=== PATIENT | male | born 1995 | race Caucasian/White ===

== ENCOUNTER 2017-09-16 10:47 | Emergency (ER) | payer MEDICAID ==
[2017-09-16 10:59] VITALS: BP 130/81
--- NOTE | 2017-09-16 12:11 | ED Physician Documentation ---
PD HPI SKIN - Stated complaint Stated Complaint: R ARMPIT PX - Chief complaint Chief Complaint: Wound - History obtained from History obtained from: Patient - History of Present Illness Timing - onset: Other (He has had a boil in the right armpit for 1-2 weeks that is increasingly swollen and painful. No fevers or chills. He is never had MRSA. He has had some boils in the past but never this big.) Review of Systems Constitutional: reports: Reviewed and negative Cardiac: reports: Reviewed and negative Respiratory: reports: Reviewed and negative PD PAST MEDICAL HISTORY - Past Medical History Past Medical History: Yes Respiratory: Asthma - Present Medications Home Medications: Ambulatory Orders Medication Instructions Recorded Confirmed Albuterol Sulfate [Proair Hfa 09/16/17 Inhaler] Fluticasone/Salmeterol [Advair 09/16/17 250-50 Diskus] Sulfamethoxazole/Trimethoprim 1 each PO BID 7 Days tablet 09/16/17 [Sulfamethoxazole-Tmp Ds Tablet] - Allergies Allergies/Adverse Reactions: Allergies Allergy/AdvReac Type Severity Reaction Status Date / Time No Known Drug Allergies Allergy Verified 09/16/17 10:59 - Social History Does the pt smoke?: No Smoking Status: Never smoker PD ED PE NORMAL - Vitals Vital signs reviewed: Yes - General General: Alert and oriented X 3, No acute distress - Extremities Extremities: Other (There is a 2 cm abscess with overlying cellulitis in the right axilla) - Neuro Neuro: Alert and oriented X 3, Normal speech Results - Vitals Vitals: Vital Signs - 24 hr 09/16/17 10:54 Temperature 36.3 C L Heart Rate 76 Respiratory 16 Rate Blood Pressure 130/81 H O2 Saturation 98 Oxygen O2 Source Room air Procedures - Abscess I&D (location) R axilla Preparation: Chlorhexadine, Lidocaine 1% Incision: Incised with scalpel, Purulent drainage, Loculations broken, Culture obtained. No: Packed Other: Pt tolerated well, Dressing applied, Antibiotic prescribed PD MEDICAL DECISION MAKING - Sepsis Event Vital Signs: Vital Signs - 24 hr 09/16/17 10:54 Temperature 36.3 C L Heart Rate 76 Respiratory 16 Rate Blood Pressure 130/81 H O2 Saturation 98 Oxygen O2 Source Room air Departure - Departure Disposition: 01 Home, Self Care Clinical Impression: Abscess Condition: Good Record reviewed to determine appropriate education?: Yes Instructions: ED Abscess IandD Prescriptions: Sulfamethoxazole/Trimethoprim [Sulfamethoxazole-Tmp Ds Tablet] 1 each PO BID 7 Days tablet Comments: We are performing a wound culture, the results should be done in 48-72 hours. If antibiotic change is necessary we will call you. Return if worse in the meantime, especially if you develop increased pain, fevers, cannot keep down the medication. Otherwise follow-up with your physician in approximately 2-3 days. Your blood pressure was elevated today on check into the emergency department. This does not mean that you have hypertension, it is a common phenomenon to come to the emergency department and have elevated blood pressure. I recommend that you see your primary care physician within the week to have it rechecked when you are feeling better.
[2017-09-16] MEDS ORDERED: BUFFERED LIDOCAINE 10 ML SYRINGE ONE (12:19)
[2017-09-16] MEDS ORDERED: BACITRACIN OINT TOP ONE (12:59)
== END 2017-09-16 12:57 | disposition home or self-care (01) ==
LOC: ED 10:47
DX: L02.411 Cutaneous abscess of right axilla (principal); L03.111 Cellulitis of right axilla; R03.0 Elevated blood-pressure reading, without diagnosis of hypertension
CPT/HCPCS: 10060; 87070; 87077; 87181; 87205; 99283; A9270

== ENCOUNTER 2017-10-29 10:12 | Emergency (ER) | payer MEDICAID ==
[2017-10-29 10:22] VITALS: BP 124/74
[2017-10-29] MEDS ORDERED: ALBUTEROL NEB 2.5 MG/3 ML INH STA (10:40)
[2017-10-29] MEDS ORDERED: DEXAMETHASONE 10 MG/ML VIAL PO STA (10:40)
[2017-10-29] MEDS ORDERED: CHERRY SYRUP 10 ML UDC PO ONE (10:50)
--- NOTE | 2017-10-29 11:14 | ED Physician Documentation ---
PD HPI DYSPNEA - Stated complaint Stated Complaint: SOA - Chief complaint Chief Complaint: Resp - History obtained from History obtained from: Patient - History of Present Illness Timing - onset: How many days ago (several) Timing - onset during: Light activity Timing - details: Gradual onset, Still present, Waxing and waning Inciting event(s): Out of meds. No: URI, Allergic rxn/anaphylaxis, Exercise Improved by: Inhaler/neb Worsened by: Exertion. No: Coughing Associated symptoms: Wheezing, Chest pain / discomfort. No: Fever, Cough, Hemoptysis Similar symptoms before: Diagnosis (asthma) Recently seen: Not recently seen Review of Systems Constitutional: denies: Fever, Chills, Myalgias Nose: denies: Rhinorrhea / runny nose, Congestion Throat: denies: Sore throat Cardiac: denies: Chest pain / pressure Respiratory: reports: Dyspnea, Cough, Wheezing GI: denies: Nausea, Vomiting, Diarrhea Skin: denies: Rash PD PAST MEDICAL HISTORY - Past Medical History Past Medical History: Yes Respiratory: Asthma - Present Medications Home Medications: Ambulatory Orders Medication Instructions Recorded Confirmed Albuterol Sulfate [Proair Hfa 09/16/17 Inhaler] Albuterol Sulf [Ventolin Hfa 2 - 3 puffs INH Q4HR PRN #1 inhaler 10/29/17 Inhaler] Dexamethasone [Decadron] 4 mg PO DAILY #20 tablet 10/29/17 - Allergies Allergies/Adverse Reactions: Allergies Allergy/AdvReac Type Severity Reaction Status Date / Time No Known Drug Allergies Allergy Verified 10/29/17 10:22 - Social History Does the pt smoke?: No Smoking Status: Never smoker PD ED PE NORMAL - Vitals Vital signs reviewed: Yes - General General: Alert and oriented X 3, No acute distress, Well developed/nourished - HEENT HEENT: Pharynx benign - Neck Neck: Supple, no meningeal sign, No adenopathy - Cardiac Cardiac: RRR, No murmur - Respiratory Respiratory: No: Clear bilaterally (exp wheezing without coarse sounds. ) - Abdomen Abdomen: Soft, Non tender - Derm Derm: Normal color, Warm and dry - Extremities Extremities: No edema, No calf tenderness / cord Results - Vitals Vitals: Oxygen O2 Source Room air PD MEDICAL DECISION MAKING - ED course Complexity details: re-evaluated patient (improved with neb), considered differential, d/w patient - Sepsis Event Vital Signs: Oxygen O2 Source Room air Departure - Departure Disposition: 01 Home, Self Care Clinical Impression: Acute exacerbation of extrinsic asthma Condition: Stable Record reviewed to determine appropriate education?: Yes Instructions: ED Reactive Airway Disease Prescriptions: Albuterol Sulf [Ventolin Hfa Inhaler] 2 - 3 puffs INH Q4HR PRN #1 inhaler PRN Reason: Shortness Of Air/Wheezing Dexamethasone [Decadron] 4 mg PO DAILY #20 tablet Comments: Use your albuterol inhaler 2-3 puffs 4 times a day for the next several days to week. Use the Decadron steroid for bronchial inflammation daily for the next 5- 7 days. He can then see how you are doing without it or take the Decadron every the second or third day to maintain the asthma better. This until you are able to see your primary care back home for a refill of your inhaled steroid Advair. Discharge Date/Time: 10/29/17 11:20
== END 2017-10-29 11:20 | disposition home or self-care (01) ==
LOC: ED 10:12
DX: J45.901 Unspecified asthma with (acute) exacerbation (principal); Z91.138 Patient's unintentional underdosing of medication regimen for other reason
CPT/HCPCS: 94640; 99283; A9270

== ENCOUNTER 2021-06-08 10:31 | Emergency (ER) | payer MEDICAID ==
[2021-06-08] MEDS ORDERED: predniSONE 20 MG TABLET PO STA (11:15)
[2021-06-08] MEDS ORDERED: IPRATROPIUM/ALBUTEROL 3 ML NEB INH STA (11:15)
[2021-06-08] MEDS ORDERED: ALBUTEROL NEB 2.5 MG/3 ML INH STA (11:15)
--- NOTE | 2021-06-08 12:34 | ED Physician Documentation ---
PD HPI DYSPNEA - Stated complaint Stated Complaint: SOA - Chief complaint Chief Complaint: Resp - Additional information Additional information: Patient is 26-year-old male with past medical significant for asthma presenting to the emergency department chief complaint shortness of breath. Reports recently moved to [facility]. Does not have primary care. Does not have albuterol inhaler. Endorses for 1 day wheeze at home. No known contact with asthma triggers. Denies known sick contacts. Denies fever, chills, chest pain, abdominal pain, nausea, vomiting, diarrhea, constipation. Review of Systems Ten Systems: 10 systems reviewed and negative Constitutional: denies: Fever Eyes: denies: Loss of vision Ears: denies: Loss of hearing Nose: denies: Rhinorrhea / runny nose Throat: denies: Dental pain / toothache Cardiac: denies: Chest pain / pressure Respiratory: reports: Dyspnea, Wheezing. denies: Cough, Hemoptysis GI: denies: Abdominal Pain, Nausea, Vomiting, Constipation, Diarrhea PD PAST MEDICAL HISTORY - Past Medical History Past Medical History: Yes Respiratory: Asthma - Past Surgical History Past Surgical History: No - Present Medications Home Medications: Ambulatory Orders Medication Instructions Recorded Confirmed Albuterol Sulf [Ventolin Hfa 2 - 3 puffs INH Q4HR PRN #1 inhaler 10/29/17 06/08/21 Inhaler] Albuterol Sulf [Ventolin Hfa 1 - 2 puffs INH Q4HR PRN #1 inhaler 06/08/21 Inhaler] predniSONE [Deltasone] 40 mg PO DAILY #10 tablet 06/08/21 - Allergies Allergies/Adverse Reactions: Allergies Allergy/AdvReac Type Severity Reaction Status Date / Time No Known Drug Allergies Allergy Verified 06/08/21 10:34 - Social History Does the pt smoke?: No Smoking Status: Never smoker Does the pt drink ETOH?: No Does the pt have substance abuse?: No PD ED PE NORMAL - Vitals Vital signs reviewed: Yes - General General: Alert and oriented X 3, No acute distress - HEENT HEENT: Atraumatic, PERRL - Neck Neck: Supple, no meningeal sign - Cardiac Cardiac: RRR, No gallop - Respiratory Respiratory: Other (Diffuse wheezing in all dockery) - Abdomen Abdomen: Normal bowel sounds, Soft - Male Male : Deferred - Rectal Rectal: Deferred - Derm Derm: Normal color - Extremities Extremities: No deformity Results - Vitals Vitals: Vital Signs - 24 hr 06/08/21 06/08/21 10:35 11:53 Temperature 36.8 C Heart Rate 100 96 Respiratory 19 18 Rate Blood Pressure 141/100 H O2 Saturation 97 Oxygen O2 Source Room air PD MEDICAL DECISION MAKING - ED course Complexity details: reviewed results, d/w patient ED course: Patient 26-year-old male presenting to the emergency department with shortness of breath x1 day in setting of known history of asthma.Afebrile, hemodynamically stable on arrival to the emergency department. Diffuse wheezing in all air dockery appreciated on exam. DuoNeb and prednisone applied in the emergency department. Patient monitored for several hours. On reevaluation had a dramatic improvement with near completely clear aeration in all lung dockery. Stated he felt significantly better. Will discharge on short course oral pre dnisone with prescription for inhaler and instructions in its use. Encourage patient to continue to work towards establishing himself with a primary care doctor. Otherwise clear return precautions and follow-up instructions given prior to discharge. Departure - Departure Disposition: 01 Home, Self Care Clinical Impression: Asthma Instructions: Asthma Dc Prescriptions: Albuterol Sulf [Ventolin Hfa Inhaler] 1 - 2 puffs INH Q4HR PRN #1 inhaler PRN Reason: Shortness Of Air/Wheezing predniSONE [Deltasone] 40 mg PO DAILY #10 tablet
[2021-06-08 12:42] VITALS: BP 114/70
== END 2021-06-08 14:20 | disposition home or self-care (01) ==
LOC: ED 10:31
DX: J45.909 Unspecified asthma, uncomplicated (principal)
CPT/HCPCS: 94640; 99283; J7512

== ENCOUNTER 2022-11-07 10:17 | Emergency (ER) | payer MEDICAID ==
[2022-11-07 10:31] VITALS: BP 124/87; O2SAT 97
== END 2022-11-07 11:00 | disposition left against medical advice (07) ==
LOC: ED 10:17
DX: Z53.21 Procedure and treatment not carried out due to patient leaving prior to being seen by health care provider (principal)

== ENCOUNTER 2023-07-31 16:17 | Outpatient (CLI) | payer MEDICAID | END 2023-07-31 23:59 | disposition EMS.NT | LOC: EMS 16:17 | DX: R61 Generalized hyperhidrosis (principal); T40.411A Poisoning by fentanyl or fentanyl analogs, accidental (unintentional), initial encounter ==